=== PATIENT | male | born 1945 ===

== ENCOUNTER 2016-08-23 05:04 | Inpatient (IN) ==
--- NOTE | 2016-08-21 15:24 | EKG Report ---
Test Performed on : 08/21/2016 3:18:13 PM Test Reason : pat Blood Pressure : / mmHG Vent. Rate : 072 BPM Atrial Rate : 072 BPM P-R Int : 180 ms QRS Dur : 116 ms QT Int : 412 ms P-R-T Axes : 032 -25 041 degrees QTc Int : 451 ms Normal sinus rhythm. Septal infarct , age undetermined Abnormal ECG No previous ECGs available Confirmed by Uziel Chapa MD ([id number]) on 08/21/2016 8:00:29 PM
[2016-08-21 16:59] LABS: HEMATOCRIT 39.6 % (42.0-52.0); HEMOGLOBIN 12.8 g/dL (14.0-18.0); MCHC 32.3 g/dL (33-37); MCV 89.6 FL (81-99); MPV 10.6 FL (7.4-10.4); RBC 4.42 XMIL (4.7-6.1)
[2016-08-21 17:10] LABS: PROTIME 10.5 Seconds (9.2-11.7); PTT 27.5 Seconds (22.0-36.0)
[2016-08-21 17:22] LABS: AGAP 13; BUN 16 mg/dL (8-22); CALCIUM 8.9 mg/dL (8.8-10.2); CHLORIDE 100 mmol/L (98-107); COSMO 286; POTASSIUM 3.3 mmol/L (3.5-5.1); SODIUM 143 mmol/L (136-145); TCO2 30 mmol/L (25-35)
[2016-08-23] MEDS ORDERED: PEPCID ONE (07:34)
[2016-08-23] MEDS ORDERED: LR 1,000 ML ONE ×2 (07:34→13:38)
[2016-08-23] MEDS ORDERED: KEFZOL 1 GM/D5W 1 GM/50 ML IVPB ONE (07:34)
[2016-08-23] MEDS ORDERED: REGLAN ONE (07:34)
[2016-08-23] MEDS ORDERED: TRANSDERM-SCOP ONE (09:23)
[2016-08-23] MEDS ORDERED: FENTANYL ONE (13:15)
[2016-08-23] MEDS ORDERED: DIPRIVAN 1% ONE (13:15)
[2016-08-23 13:25] LABS: URINE MICRO REVIEW NEEDED? NO; URINE SOURCE CATH
[2016-08-23] MEDS ORDERED: NEOSTIGMINE ONE (13:37)
[2016-08-23] MEDS ORDERED: ZOFRAN ONE (13:37)
[2016-08-23] MEDS ORDERED: NORCURON ONE (13:37)
[2016-08-23] MEDS ORDERED: XYLOCAINE-MPF 2% ONE (13:37)
[2016-08-23] MEDS ORDERED: ROBINUL ONE (13:37)
[2016-08-23] MEDS ORDERED: DECADRON ONE (13:38)
[2016-08-23] MEDS ORDERED: QUELICIN (DOSE) ONE (13:38)
[2016-08-23] MEDS ORDERED: OFIRMEV 1000 MG/ISOTONIC SOLN 1,000 MG/100 ML BOTTLE ONE (13:38)
[2016-08-23 13:40] LABS: BILIRUBIN URINE NEGATIVE (NEGATIVE); BLOOD URINE NEGATIVE (NEGATIVE); COLOR STRAW; GLUCOSE URINE NEGATIVE (NEGATIVE); LEUKOCYTES URINE NEGATIVE (NEGATIVE); NITRITE URINE NEGATIVE (NEGATIVE); PROTEIN URINE NEGATIVE (NEGATIVE); SP GRAVITY URINE 1.007; TURBIDITY URINE CLEAR (CLEAR); UROBILINOGEN URINE NORMAL (NORMAL)
[2016-08-23 13:45] LABS: UR EPITHELIAL CELLS <10 /HPF (<10); URINE BACTERIA NEGATIVE /HPF; URINE RBC <10 /HPF (<10); URINE WBC <10 /HPF (<10)
[2016-08-23] MEDS ORDERED: D5 1/2 NS 1,000 ML ONE (14:07)
[2016-08-23] MEDS ORDERED: B & O 15A SUPP ONE (14:15)
[2016-08-23] MEDS: MORPHINE ONE ×7 (14:52→15:37)
[2016-08-23] MEDS ORDERED: LABETALOL IV PRN (16:47)
[2016-08-23] MEDS ORDERED: B & O 15A SUPP PR PRN (16:47)
[2016-08-23] MEDS ORDERED: BENADRYL IV PRN (16:47)
[2016-08-23] MEDS ORDERED: PHENERGAN PR PRN (16:47)
[2016-08-23] MEDS ORDERED: DITROPAN PO PRN (16:47)
[2016-08-23] MEDS ORDERED: TYLENOL PO PRN (16:47)
[2016-08-23] MEDS ORDERED: MORPHINE IV PRN (16:47)
[2016-08-23] MEDS ORDERED: ZOFRAN IV PRN (16:47)
[2016-08-23] MEDS ORDERED: SODIUM CHLORIDE 0.9% INJ PRN (16:47)
[2016-08-23] MEDS ORDERED: BENADRYL LIQUID PO PRN (16:47)
[2016-08-23] MEDS ORDERED: PHENERGAN PO PRN (16:47)
[2016-08-23] MEDS ORDERED: PHENERGAN IV PRN (16:47)
[2016-08-23] MEDS ORDERED: PNEUMOVAX 23 IM ONE (17:30)
[2016-08-23] MEDS: NORCO-7.5 PO PRN ×2 (18:09→23:12)
[2016-08-23] MEDS: KEFZOL 1 GM/D5W 1 GM/50 ML IVPB IV SCH (18:20)
[2016-08-23] MEDS: D5 1/2 NS 1,000 ML IV SCH (18:23)
[2016-08-23] MEDS: COLACE PO SCH (21:34)
[2016-08-23] MEDS: PERIDEX MT SCH (21:34)
[2016-08-24] MEDS: KEFZOL 1 GM/D5W 1 GM/50 ML IVPB IV SCH ×2 (03:00→08:59)
[2016-08-24] MEDS: NORCO-7.5 PO PRN (04:38)
[2016-08-24 06:02] LABS: HEMATOCRIT 37.1 % (42.0-52.0); HEMOGLOBIN 11.9 g/dL (14.0-18.0); MCH 29.2 PG (27-31); MCHC 32.1 g/dL (33-37); MCV 91.2 FL (81-99); MPV 10.8 FL (7.4-10.4); RBC 4.07 XMIL (4.7-6.1)
[2016-08-24 06:29] LABS: AGAP 10; BUN 11 mg/dL (8-22); CHLORIDE 101 mmol/L (98-107); COSMO 284; SODIUM 142 mmol/L (136-145); TCO2 31 mmol/L (25-35)
[2016-08-24] MEDS: D5 1/2 NS 1,000 ML IV SCH (07:00)
[2016-08-24 07:40] VITALS: BP 150/70
[2016-08-24] MEDS: PERIDEX MT SCH (08:39)
[2016-08-24] MEDS: COLACE PO SCH (08:40)
[2016-08-24] MEDS ORDERED: PERICOLACE PO SCH (09:00)
[2016-08-24] MEDS ORDERED: PROCARDIA ER PO SCH (09:00)
--- NOTE | 2016-08-24 11:30 | PROGRESS NOTE ---
DATE: 08/24/2016 SUBJECTIVE: Mr. Mahan had a good night. He denies significant pain with the exception of the chronic back pain. OBJECTIVE: Vital Signs: Temperature 98.4 degrees, pulse 74, blood pressure 150/70. Urine Output: Urine output was recorded in the amount of 2700 mL. General: In no acute distress. Abdomen: Appropriately tender, nondistended. Incisions are clean, dry, and intact in all port sites. Genitourinary: Vasquez catheter draining straw-colored urine. PERTINENT LABORATORIES: His white cell count is 11,000, hematocrit is 37. Creatinine is 1.0. ASSESSMENT: A 71-year-old male, status post robotic assisted laparoscopic prostatectomy with bilateral pelvic lymph node dissection and laparoscopic ureteral suspension, who is doing well. He was educated in postoperative care. PLAN: 1. Discharge home with Vasquez catheter. 2. He will go home with prescriptions for Semora 7.5, Keflex, oxybutynin. 3. I will see him in clinic on 08/28/2016 for catheter removal. cc: James Botello MD
--- NOTE | 2016-08-24 13:58 | OPERATIVE NOTE ---
PROCEDURE DATE: 08/24/2016 PREOPERATIVE DIAGNOSIS: Elevated prostate specific antigen, Arsalan 7 prostate adenocarcinoma. PRIMARY PROCEDURES: 1. Robotic-assisted laparoscopic radical prostatectomy with nerve sparing. 2. Bilateral pelvic lymph node dissection. 3. Laparoscopic urethral suspension. INDICATIONS: A 71-year-old male who reported elevated PSA over 10. He underwent prostate biopsy in [facility], where pathology revealed [place] 7 prostate adenocarcinoma. He presented desiring surgical intervention. FINDINGS: Watertight vesicourethral anastomosis. Adequate hemostasis at the conclusion of the case. Bilateral nerve sparing was done. PROCEDURE IN DETAIL: After obtaining informed consent, patient brought to the operating room. Perioperative antibiotics and general endotracheal anesthesia were administered. He was placed in lithotomy position, prepped and draped in sterile fashion. An 18-Qatari Vasquez catheter was introduced in a sterile fashion and the bladder was drained. A small stab incision was made in the umbilicus with a 15 blade, followed by introduction of a Veress needle connected to a saline- filled syringe. We confirmed positive drop test, followed by aspiration of syringe fluid, which revealed no evidence of GI contents or blood. I insufflated pneumoperitoneal cavity to 15 mmHg. The incisions were made in a standard prostatectomy fashion. Bovie electrocautery was used to cut the skin. The 12 mm camera trocar was introduced and the abdominal cavity was examined. He did not have any evidence of intra-abdominal adhesions. We then inserted the rest of the trocars under direct vision. He was placed in steep Trendelenburg position, the robot was docked. We began by incising the peritoneum approximately 3 cm above the rectum and developing space to identify the right vas deferens, dissect it and transect it. I subsequently identified the right seminal vesicle and dissected it with judicious use of cautery laterally. We then performed the same thing on the left side. I then dissected anterior to the vas deferens to the level of the prostate and posteriorly through Denonvilliers fascia into perirectal plane. Following that, we incised lateral to each medial umbilical ligament, allowing us access to the space of Retzius. Fat was reflected off of endopelvic fascia, which was then incised to follow the contour the prostate toward the apex. Puboprostatic ligaments were divided sharply. The superficial dorsal venous complex was controlled with bipolar electrocautery. Deep dorsal venous complex was controlled with 0 V-Loc suture in a gadiks-va-jpuut fashion with anterior periosteal elevation. Following that, we identified the level of bladder neck. Vasquez catheter was somewhat deviating to the left side and I assumed he had a likely median lobe or asymmetric prostate. Once the bladder neck was transected and Vasquez catheter was seen, that was indeed true and he had prostatic protrusion on his right consistent with the median lobe. We carefully dissected the mucosa and freed up the median lobe. Our bladder neck did not appear to be too wide. Following that, we developed the plane between the prostate and the bladder until seminal vesicles and vas deferens came into the view. Those were brought on anterior traction. We then identified and reflected neurovascular bundles with the use of Hem-o-maryann clips. I was able to follow the smooth control of the prostate. Subsequent to that, the prostate was freed posteriorly. We then transected apical tissues until urethra was seen. I used partial urethral sparing technique, given that his Arsalan 7 disease was not biopsied in the right apex. The urethra was transected sharply and the prostate was delivered into the field. There was minimal bleeding around the transected dorsal venous complex, which was cauterized with bipolar instrument. We then turned our attention to the pelvic lymph node dissection. The bladder was mobilized medially with retraction of 4th arm, and the left external iliac vein was identified. Lymphatic tissue just medial to the vein was secured and grasped, and I dissected along the external iliac vein to its confluence with the common iliac vein. Medial border of dissection was perivesical fat, lateral border dissection was pelvic sidewall, and posterior border was the obturator vessels and obturator nerve, which was visualized and preserved. Once the lymphatic tissue was removed, it was placed into the EndoCatch bag. Surgicel hemostatic agent was placed into the lymphadenectomy bed. We then performed the identical procedure on the right side with the same landmarks. We also placed Surgicel hemostatic agent in the lymphadenectomy bed. Following that, the wound was irrigated and there was no evidence of active bleeding. We turned our attention to the vesicourethral anastomosis. A 3-0 V- Loc suture was used as a Aniket stitch to reapproximate perivesical and periurethral tissues in a running fashion. Following that, we performed a formal vesicourethral anastomosis with 3-0 V-Loc running sutures, subsequently cross-tying the sutures. A fresh 18-Qatari Vasquez catheter was introduced and the bladder was irrigated with 240 mL without any evidence of leak. Subsequent to that, I used the previously placed Aniket sutures and advanced them through the periosteum of the pubis, allowing us to suspend the urethra. The urethra was suspended under mild tension. The pneumoperitoneal pressure was decreased to 3 mmHg and there was no evidence of active bleeding. We then undocked the robot, removed the trocars, extended the supraumbilical incision, removed the prostate and lymph nodes in 1 packet, and irrigated and the wounds. Then 0 Vicryl suture was used to close the supraumbilical incision in a [id number]-gl-[id number] interrupted fashion as well as 12 mm contact center assistant trocar. The wounds were irrigated again. Then 4-0 Monocryl suture was used for subcuticular closure, followed by Dermabond skin adhesive. He was extubated and taken to PACU for further recovery. ESTIMATED BLOOD LOSS: 150 mL. COMPLICATIONS: None. DISPOSITION: To PACU and subsequently to floor for observation, with Vasquez catheter to gravity drainage. cc: James Botello MD
== END 2016-08-24 12:28 | disposition home or self-care (01) ==
LOC: SURHOLD 05:04 → 4N 14:35
PROVIDERS: ADMIT Urology; ATTEND Urology